=== PATIENT | male | born 1980 | race Caucasian/White ===

== ENCOUNTER → 2017-08-04 | Outpatient (CLI) | payer MEDICAID, OTHER | LOC: M OUTALCOH 08:13 | DX: Z03.89 Encounter for observation for other suspected diseases and conditions ruled out (principal) ==

== ENCOUNTER 2017-08-15 09:29 | Outpatient (RCR) | payer MEDICAID | END 2017-08-24 | LOC: M OUTALCOH 09:29 | DX: Z03.89 Encounter for observation for other suspected diseases and conditions ruled out (principal) ==

== ENCOUNTER 2017-12-03 02:35 | Emergency (ER) | payer OTHER, MEDICAID ==
[2017-12-03 02:59] LABS: BASO # 0.1 10^3/uL (0.0-0.2); BASO % 0.7 % (0.0-1.0); EOS # 0.2 10^3/uL (0.0-0.50); EOS % 1.4 % (0.0-3.0); HEMATOCRIT 46.8 % (42.0-52.0); HEMOGLOBIN 16.1 g/dl (13.5-17.5); IMMATURE GRANULOCYTE % 0.7 % (0-3.0); LYMPH % 38.5 % (24.0-44.0); MEAN CORPUSCULAR HEMOGLOBIN 31.6 pg (27.0-33.0); MEAN CORPUSCULAR HGB CONC 34.4 g/dl (32.0-36.5); MEAN CORPUSCULAR VOLUME 91.8 fl (80.0-96.0); MONO # 0.9 10^3/uL (0.0-0.8); MONO % 8.7 % (0.0-5.0); NEUTROPHILS # 5.2 10^3/uL (1.8-7.7); PLATELET COUNT, AUTOMATED 258 10^3/uL (150-450); RED CELL DISTRIBUTION WIDTH 12.5 % (11.5-14.5); WHITE BLOOD COUNT 10.4 10^3/uL (4.0-10.0)
[2017-12-03] MEDS ORDERED: ISOVUE-370 76% 100ML VIAL (Q9967) As Ordered (03:13)
[2017-12-03 03:15] LABS: INR 0.99; PARTIAL THROMBOPLASTIN TIME 31.5 SECONDS (26.8-37.9); PROTHROMBIN TIME 13.2 SECONDS (12.4-14.5)
[2017-12-03 03:19] LABS: ANION GAP 9 MEQ/L (8-16); BLOOD UREA NITROGEN 9 MG/DL (7-18); CALCIUM LEVEL 8.6 MG/DL (8.5-10.1); CARBON DIOXIDE LEVEL 26 MEQ/L (21-32); CHLORIDE LEVEL 107 MEQ/L (98-107); GLOMERULAR FILTRATION RATE > 60.0 (>60); GLUCOSE, FASTING 107 MG/DL (70-100); POTASSIUM SERUM 3.8 MEQ/L (3.5-5.1); SODIUM LEVEL 142 MEQ/L (136-145)
[2017-12-03 03:54] LABS: ALKALINE PHOSPHATASE 63 U/L (45-117); ALT/SGPT 38 U/L (12-78); AST/SGOT 41 U/L (7-37); BILIRUBIN,DIRECT 0.2 MG/DL (0.0-0.2); BILIRUBIN,TOTAL 0.7 MG/DL (0.2-1.0); LIPASE 295 U/L (73-393); TOTAL PROTEIN 7.4 GM/DL (6.4-8.2)
[2017-12-03 04:08] LABS: ETHYL ALCOHOL (ETHANOL) 0.156 % (0.000-0.010)
[2017-12-03 05:23] LABS: ALBUMIN 4.1 GM/DL (3.2-5.2); ALBUMIN/GLOBULIN RATIO 1.24 (1.00-1.93)
[2017-12-03] MEDS: MORPHINE 10 MG/ML 1ML VIAL (J2270) IV (05:34)
== END 2017-12-03 05:30 | disposition short-term general hospital (02) ==
LOC: M ED 02:35
DX: S27.321A Contusion of lung, unilateral, initial encounter (principal); S22.41XA Multiple fractures of ribs, right side, initial encounter for closed fracture; S42.021A Displaced fracture of shaft of right clavicle, initial encounter for closed fracture; V29.9XXA Motorcycle rider (driver) (passenger) injured in unspecified traffic accident, initial encounter; Y92.9 Unspecified place or not applicable; Y93.9 Activity, unspecified; Y99.9 Unspecified external cause status; F17.200 Nicotine dependence, unspecified, uncomplicated; Z88.1 Allergy status to other antibiotic agents
CPT/HCPCS: Q9967

== ENCOUNTER 2018-02-06 07:56 | Emergency (ER) | payer OTHER ==
[2018-02-06] MEDS: ONDANSETRON 4MG/2ML VIAL (J2405) IV (08:40)
[2018-02-06] MEDS: NS 1,000 ML IV (08:41)
[2018-02-06] MEDS: KETOROLAC 30 MG/ML VIAL (J1885) IV (08:41)
[2018-02-06 08:47] LABS: BASO # 0.1 10^3/uL (0.0-0.2); BASO % 0.5 % (0.0-1.0); EOS # 0.1 10^3/uL (0.0-0.50); EOS % 1.2 % (0.0-3.0); HEMATOCRIT 44.4 % (42.0-52.0); HEMOGLOBIN 15.5 g/dl (13.5-17.5); IMMATURE GRANULOCYTE % 0.3 % (0-3.0); LYMPH # 1.9 10^3/uL (1.5-4.5); LYMPH % 19.9 % (24.0-44.0); MEAN CORPUSCULAR HEMOGLOBIN 31.8 pg (27.0-33.0); MEAN CORPUSCULAR HGB CONC 34.9 g/dl (32.0-36.5); MEAN CORPUSCULAR VOLUME 91.2 fl (80.0-96.0); MONO # 0.7 10^3/uL (0.0-0.8); MONO % 7.3 % (0.0-5.0); NEUTROPHILS # 6.6 10^3/uL (1.8-7.7); NEUTROPHILS % 70.8 % (36.0-66.0); PLATELET COUNT, AUTOMATED 228 10^3/uL (150-450); RED BLOOD COUNT 4.87 10^6/uL (4.30-6.10); RED CELL DISTRIBUTION WIDTH 12.3 % (11.5-14.5); WHITE BLOOD COUNT 9.4 10^3/uL (4.0-10.0)
[2018-02-06 08:52] LABS: CALCIUM OXALATE CRYSTALS RFX SMALL; KETONE, URINE AUTO RFX TRACE mg/dL (NEGATIVE); MUCUS, URINE RFX LARGE (NEGATIVE); NITRITE, URINE AUTO RFX NEGATIVE (NEGATIVE); RBC, URINE AUTO RFX 75 /HPF (0-3); SPECIFIC GRAVITY UR AUTO RFX 1.027 (1.002-1.035); SQUAM EPITHELIAL CELL UR AURFX 0 /HPF (0-6); WBC, URINE AUTO RFX 5 /HPF (0-3)
[2018-02-06 09:08] LABS: ANION GAP 6 MEQ/L (8-16); BLOOD UREA NITROGEN 11 MG/DL (7-18); CALCIUM LEVEL 8.8 MG/DL (8.5-10.1); CARBON DIOXIDE LEVEL 27 MEQ/L (21-32); CHLORIDE LEVEL 111 MEQ/L (98-107); GLOMERULAR FILTRATION RATE > 60.0 (>60); GLUCOSE, FASTING 119 MG/DL (70-100); SODIUM LEVEL 144 MEQ/L (136-145)
[2018-02-06 09:52] LABS: LEUKOCYTE ESTERASE UR AUTO RFX TRACE (NEGATIVE)
== END 2018-02-06 10:30 | disposition home or self-care (01) ==
LOC: M ED 07:56
DX: N20.1 Calculus of ureter (principal); N13.30 Unspecified hydronephrosis; Z88.2 Allergy status to sulfonamides; Z88.8 Allergy status to other drugs, medicaments and biological substances; F17.210 Nicotine dependence, cigarettes, uncomplicated
CPT/HCPCS: J2405

== ENCOUNTER → 2019-09-28 | Outpatient (REF) | payer OTHER ==
[~2019-09-28] MED LIST: HYDR-3715 PO; IBUP-1022 PO; ZOFR4TAB14 PO
== END ==
LOC: M SFHCPLAZ 15:47
DX: E66.9 Obesity, unspecified (principal); Z79.1 Long term (current) use of non-steroidal anti-inflammatories (NSAID); M25.542 Pain in joints of left hand; Z53.9 Procedure and treatment not carried out, unspecified reason

== ENCOUNTER 2021-01-28 15:01 | Emergency (ER) | payer OTHER ==
[~2021-01-28] VITALS: Ht 182.9 cm; Wt 122.7 kg
--- NOTE | 2021-01-28 15:36 | REP ---
INDICATION: saw injury COMPARISON: None. TECHNIQUE: AP, lateral, bilateral oblique views left hand. FINDINGS: Comminuted fracture dislocation and partial amputation involves the distal tip of the 3rd middle phalanx and distal phalanx. Overlying soft tissue laceration and partial amputation noted and small amounts of foreign body material cannot be excluded. IMPRESSION: Traumatic changes involving the distal aspect of the 3rd middle phalanx as well as the entire distal phalanx and overlying soft tissues.. <Electronically signed by Jm Mora > 01/28/21 1539
[2021-01-28] MEDS ORDERED: BOOSTRIX/ADACEL VACCINE (DIPHTH/PERTUSS/ACELL/TETANUS) 0.5ML SYR IM ONE (17:40)
[2021-01-28] MEDS ORDERED: NS 1,000 ML IV ONE (17:40)
[2021-01-28] MEDS: MORPHINE 4 MG/ML 1ML VIAL/SYRINGE (J2270) IV ONE ×2 (17:45→17:50)
[2021-01-28] MEDS ORDERED: ceFAZolin SOD 2 GM in IV 1 EA IV ONE (17:45)
[2021-01-28 19:28] VITALS: BP 148/83
== END 2021-01-28 19:24 | disposition short-term general hospital (02) ==
LOC: M ED 15:01
DX: S62.633B Displaced fracture of distal phalanx of left middle finger, initial encounter for open fracture (principal); W31.2XXA Contact with powered woodworking and forming machines, initial encounter; Y92.009 Unspecified place in unspecified non-institutional (private) residence as the place of occurrence of the external cause; Y93.89 Activity, other specified; Y99.9 Unspecified external cause status; F17.200 Nicotine dependence, unspecified, uncomplicated; Z88.1 Allergy status to other antibiotic agents
CPT/HCPCS: 73130; 90715; 96365; 96372; 96375; 99284; J0690; U0002

== ENCOUNTER → 2023-04-08 | Outpatient (REF) | payer OTHER ==
[2023-04-08 17:08] LABS: BASO % 0.4 % (0.0-1.0); EOS # 0.1 10^3/uL (0.0-0.5); HEMATOCRIT 44.9 % (42.0-52.0); HEMOGLOBIN 15.2 g/dl (13.5-17.5); LYMPH # 2.6 10^3/uL (1.5-5.0); LYMPH % 32.5 % (24.0-44.0); MEAN CORPUSCULAR HEMOGLOBIN 30.7 pg (27.0-33.0); MEAN CORPUSCULAR HGB CONC 33.9 g/dl (32.0-36.5); MEAN CORPUSCULAR VOLUME 90.7 fl (80.0-96.0); MONO # 0.7 10^3/uL (0.0-0.8); MONO % 8.3 % (2.0-8.0); NEUTROPHILS # 4.6 10^3/uL (1.5-8.5); NEUTROPHILS % 57.5 % (36.0-66.0); PLATELET COUNT, AUTOMATED 239 10^3/uL (150-450); RED BLOOD COUNT 4.95 10^6/uL (4.30-6.10)
[2023-04-08 17:39] LABS: TOTAL 25(OH) VITAMIN D 28.9 NG/ML (20.0-100.0)
[2023-04-08 17:41] LABS: ALBUMIN 4.3 G/DL (3.2-5.2); ALKALINE PHOSPHATASE 71 U/L (46-116); ALT/SGPT 49 U/L (7.0-40); AST/SGOT 31 U/L (<34); BILIRUBIN,TOTAL 0.5 MG/DL (0.3-1.2); BLOOD UREA NITROGEN 14 MG/DL (9-23); CALCIUM LEVEL 9.6 MG/DL (8.5-10.1); CARBON DIOXIDE LEVEL 28 MMOL/L (20-31); CHLORIDE LEVEL 106 MMOL/L (98-107); CHOLESTEROL LEVEL 240 MG/DL (<200); CHOLESTEROL RISK RATIO 5.18 (<5); CREATININE FOR GFR 1.06 MG/DL (0.70-1.30); GLOMERULAR FILTRATION RATE > 60.0 (>60); GLUCOSE, FASTING 76 MG/DL (60-100); HDL CHOLESTEROL 46.3 MG/DL (>40); LDL CHOLESTEROL 166.1 MG/DL (<100); NON-HDL-C 193.7 MG/DL; POTASSIUM SERUM 4.3 MMOL/L (3.5-5.1); SODIUM LEVEL 142 MMOL/L (136-145); TOTAL PROTEIN 7.3 G/DL (5.7-8.2); TRIGLYCERIDES LEVEL 138 MG/DL (<150)
[2023-04-08 18:13] LABS: HEMOGLOBIN A1c 5.3 % (4.0-6.0)
[2023-04-11 19:07] LABS: IgG P18 AB Absent (.); IgG P23 AB Absent (.); IgG P28 AB Absent (.); IgG P30 AB Absent (.); IgG P39 AB Absent (.); IgG P41 AB Absent (.); IgG P45 AB Absent (.); IgG P66 AB Absent (.); IgG P93 AB Absent (.); IgM P23 AB Absent (.); IgM P39 AB Absent (.); IgM P41 AB Absent (.); LYME IgG WB INTERPRETATION Negative (.); LYME IgM WB INTERPRETATION Negative (.)
== END ==
LOC: M LAB REF 16:17
PROVIDERS: ATTEND Nurse Practitioner Family
DX: E66.3 Overweight (principal); E55.9 Vitamin D deficiency, unspecified; R53.83 Other fatigue; M25.50 Pain in unspecified joint; W57.XXXA Bitten or stung by nonvenomous insect and other nonvenomous arthropods, initial encounter; Z11.9 Encounter for screening for infectious and parasitic diseases, unspecified

== ENCOUNTER → 2023-07-07 | Outpatient (REF) | payer OTHER ==
[2023-07-07 19:11] LABS: CHOLESTEROL RISK RATIO 6.18 (<5); HDL CHOLESTEROL 43.5 MG/DL (>40); LDL CHOLESTEROL 201.1 MG/DL (<100); NON-HDL-C 225.5 MG/DL
== END ==
LOC: M LAB REF 17:29
PROVIDERS: ATTEND Nurse Practitioner Family
DX: E78.00 Pure hypercholesterolemia, unspecified (principal)

== ENCOUNTER → 2024-06-08 | Outpatient (REF) | payer OTHER ==
[2024-06-08 17:12] LABS: BASO % 0.5 % (0.0-1.0); EOS # 0.2 10^3/uL (0.0-0.5); HEMATOCRIT 47.3 % (42.0-52.0); LYMPH # 2.5 10^3/uL (1.5-5.0); LYMPH % 30.5 % (24.0-44.0); MEAN CORPUSCULAR HEMOGLOBIN 30.5 pg (27.0-33.0); MEAN CORPUSCULAR HGB CONC 33.8 g/dl (32.0-36.5); MEAN CORPUSCULAR VOLUME 90.3 fl (80.0-96.0); MONO # 0.6 10^3/uL (0.0-0.8); NEUTROPHILS # 4.8 10^3/uL (1.5-8.5); NEUTROPHILS % 59.6 % (36.0-66.0); PLATELET COUNT, AUTOMATED 255 10^3/uL (150-450); RED BLOOD COUNT 5.24 10^6/uL (4.30-6.10); WHITE BLOOD COUNT 8.1 10^3/uL (4.0-10.0)
[2024-06-08 17:31] LABS: HEMOGLOBIN A1c 5.1 % (4.0-6.0)
[2024-06-08 17:37] LABS: BLOOD UREA NITROGEN 10 MG/DL (9-23); CALCIUM LEVEL 10.2 MG/DL (8.5-10.1); CARBON DIOXIDE LEVEL 28 MMOL/L (20-31); CHLORIDE LEVEL 106 MMOL/L (98-107); CHOLESTEROL LEVEL 290 MG/DL (<200); CHOLESTEROL RISK RATIO 6.98 (<5); CREATININE FOR GFR 0.91 MG/DL (0.70-1.30); GLOMERULAR FILTRATION RATE > 60.0 (>60); GLUCOSE, FASTING 87 MG/DL (60-100); HDL CHOLESTEROL 41.5 MG/DL (>40); IRON (FE) 80 UG/DL (65-175); LDL CHOLESTEROL 207.3 MG/DL (<100); NON-HDL-C 248.5 MG/DL; PERCENT SATURATION 24.2 % (19.7-50.0); POTASSIUM SERUM 3.8 MMOL/L (3.5-5.1); SODIUM LEVEL 140 MMOL/L (136-145); TOTAL IRON BINDING CAPACITY 331 UG/DL (250-425); TRIGLYCERIDES LEVEL 206 MG/DL (<150)
[2024-06-08 17:38] LABS: FERRITIN 194.7 NG/ML (10.5-307.3); THYROID STIMULATING HORMONE 5.327 uIU/ML (0.55-4.78)
== END ==
LOC: M LAB REF 16:28
PROVIDERS: ATTEND Nurse Practitioner Family
DX: K52.89 Other specified noninfective gastroenteritis and colitis (principal); E66.3 Overweight

== ENCOUNTER → 2024-08-05 | Outpatient (CLI) | payer OTHER | LOC: M RAD 09:04 | PROVIDERS: ATTEND Nurse Practitioner Family | DX: M54.2 Cervicalgia (principal) ==

== ENCOUNTER → 2024-10-16 | Outpatient (REF) | payer OTHER ==
[2024-10-16 18:56] LABS: HEMOGLOBIN A1c 4.8 % (4.0-6.0)
[2024-10-16 19:01] LABS: BLOOD UREA NITROGEN 11 MG/DL (9-23); CALCIUM LEVEL 9.2 MG/DL (8.5-10.1); CARBON DIOXIDE LEVEL 28 MMOL/L (20-31); CHLORIDE LEVEL 109 MMOL/L (98-107); CHOLESTEROL LEVEL 236 MG/DL (<200); CREATININE FOR GFR 0.93 MG/DL (0.70-1.30); GLOMERULAR FILTRATION RATE > 60.0 (>60); GLUCOSE, FASTING 92 MG/DL (60-100); HDL CHOLESTEROL 41.4 MG/DL (>40); NON-HDL-C 194.6 MG/DL; POTASSIUM SERUM 4.4 MMOL/L (3.5-5.1); SODIUM LEVEL 144 MMOL/L (136-145); TRIGLYCERIDES LEVEL 233 MG/DL (<150)
[2024-10-16 19:03] LABS: THYROID STIMULATING HORMONE 3.518 uIU/ML (0.55-4.78)
== END ==
LOC: M LAB REF 18:16
PROVIDERS: ATTEND Nurse Practitioner Family
DX: E66.3 Overweight (principal); R94.6 Abnormal results of thyroid function studies